=== PATIENT | male | born 1945 ===

== ENCOUNTER 2024-10-27 12:39 | Outpatient (CLI) | payer MEDICARE, SELFPAY ==
--- NOTE | ~2024-10-27 | MR_ITS ---
EXAMINATION: MR lumbar spine wo con DATE: 10/27/2024 14:25 INDICATION: Lumbar radicular pain. TECHNIQUE: Magnetic resonance imaging (MRI) of the lumbar spine was performed without intravenous con trast. COMPARISON: None FINDINGS: Alignment is normal. There are changes of anterior and posterior fusion procedures from L1 to S1 with interbody devices and pedicle screws. There is mild chronic anterior wedging of L1 vertebr al body. There are changes of vertebroplasty at T12. There is moderately decreased disc height at T12 -L1. The distal spinal cord signal intensity is normal. The conus medullaris is at L1-L2. The followi ng disc levels are specifically discussed: T12-L1: The disc is bulging and has an annular fissure. There is moderate bilateral facet joint osteo arthritis. There is mild right and moderate left neural foraminal stenosis. There is mild central can al stenosis. L1-L2: The disc is bulging. There is no facet joint hypertrophy. There is mild bilateral neural bud inal stenosis. There is no central canal stenosis. L2-L3: There is no facet joint hypertrophy. There is mild right neural foraminal stenosis. There is n o central canal stenosis. L3-L4: There is no facet joint hypertrophy. There is mild bilateral neural foraminal stenosis. There is no central canal stenosis. L4-L5: There is no facet joint hypertrophy. There is mild bilateral neural foraminal stenosis. There is no central canal stenosis. L5-S1: There is no facet joint hypertrophy. There is mild right neural foraminal stenosis. There is n o central canal stenosis. IMPRESSION: 1. Moderate spondylosis at T12-L1. 2. Anterior and posterior fusion procedures from L1 to S1. Reviewed, dictated and finalized at location A. [employer] SUPERVISOR
--- NOTE | ~2024-10-27 | MR_ITS ---
EXAMINATION: MR cervical spine wo con DATE: 10/27/2024 14:06 INDICATION: Cervical fusion syndrome. Neck pain. TECHNIQUE: Magnetic resonance imaging (MRI) of the cervical spine was performed without intravenous c ontrast. COMPARISON: None FINDINGS: Alignment is normal. There are changes of anterior fusion procedure from C3 to C6 with heal ed interbody bone graft and anterior plate with screws. There are changes of posterior fusion procedu re from C3 to T1 with lateral mass screws from C3 to C6 and pedicle screws at T1. There is a chronic compression fracture of T1 with 1/5 loss of height. There is interbody fusion at C6-C7. There is eliane rely decreased disc height at C7-T1, T1-T2, and T2-T3. There is increased T2-weighted signal intensit y in the spinal cord at C4, consistent with myelomalacia. The following disc levels are specifically discussed: C2-C3: The disc does not extend beyond the endplate margin. There is mild bilateral uncovertebral shayla nt hypertrophy. There is severe right and mild left facet joint hypertrophy. There is moderate right and mild left neural foraminal stenosis. There is no central canal stenosis. C3-C4: There is moderate bilateral uncovertebral joint hypertrophy. There is moderate right and sever e left facet joint hypertrophy. There is moderate bilateral neural foraminal stenosis. There is no ce ntral canal stenosis. C4-C5: There is mild bilateral uncovertebral joint hypertrophy. There is mild bilateral facet joint h ypertrophy. There is mild bilateral neural foraminal stenosis. There is no central canal stenosis. C5-C6: There is severe bilateral uncovertebral joint hypertrophy. There is no facet joint hypertrophy . There is moderate bilateral neural foraminal stenosis. There is no central canal stenosis. C6-C7: There is severe bilateral uncovertebral joint hypertrophy. There is mild bilateral facet joint hypertrophy. There is mild right and moderate left neural foraminal stenosis. There is no central ca nal stenosis. C7-T1: There is a central protrusion. There is severe bilateral uncovertebral joint osteoarthritis. T here is severe bilateral facet joint osteoarthritis. There is moderate right and mild left neural for aminal stenosis. There is no central canal stenosis. IMPRESSION: 1. Myelomalacia at C4. 2. Anterior fusion from C3 to C7 and posterior fusion from C3 to T1. 3. Moderate cervical spondylosis and severe upper thoracic spondylosis. Reviewed, dictated and finalized at location A. [employer]
--- NOTE | ~2024-10-27 | MR_ITS ---
EXAMINATION: MR thoracic spine wo con DATE: 10/27/2024 14:25 INDICATION: Mid back pain. Low back pain. TECHNIQUE: Magnetic resonance imaging (MRI) of the thoracic spine was performed without intravenous c ontrast. COMPARISON: None FINDINGS: There is 3 degrees dextrocurvature of thoracic spine. There are changes of posterior fusion procedure from the cervical spine to T1. There is mild chronic anterior wedging of T1 vertebral body . There is severely decreased disc height at T1-T2 and T2-T3. There are changes of posterior fusion p rocedure from T12 to the lumbar spine. There are changes of vertebroplasty at T11 and T12. There is s everely decreased disc height at T9-T10 and moderately decreased disc height at T10-T11 and T11-T12. The discs are bulging at T1-T2, T2-T3, T9-T10, T10-T11, and T11-T12 with mild central canal stenosis. There is multilevel facet joint osteoarthritis, severe in the lower thoracic spine. There is mild ne ural foraminal stenosis at multiple levels on either side. On the right, there is moderate neural fro ntal stenosis at T1-T2, T2-T3, T9-T10, and T10-T11. On the left, there is moderate neural frontal kristen nosis at T1-T2, T2-T3, T9-T10, T10-T11, and T11-T12. The spinal cord signal intensity is normal. IMPRESSION: 1. Severe thoracic spondylosis. Reviewed, dictated and finalized at location A. MANAGEMENT SPECIALIST
== END 2024-10-27 12:40 | disposition home or self-care (01) ==
LOC: MICIMG 12:41
PROVIDERS: PCP Physician Assistant; Visit Provider Physician Assistant
DX: M47.815 Spondylosis without myelopathy or radiculopathy, thoracolumbar region (principal); M47.896 Other spondylosis, lumbar region; M43.26 Fusion of spine, lumbar region; M43.27 Fusion of spine, lumbosacral region
CPT/HCPCS: 72141; 72146; 72148